=== PATIENT | female | born 1970 | race Hispanic/Latino ===

== ENCOUNTER → 2017-12-19 | Outpatient (CLI) | payer OTHER ==
--- NOTE | 2017-12-19 11:14 | Diagnostic Imaging Report ---
EXAMINATION: CHEST 2 VIEWS INDICATION: Cough COMPARISON: None FINDINGS: TUBES and LINES: None. LUNGS: Lungs are well inflated. Lungs are clear. There is no evidence of pneumonia or pulmonary edema. PLEURA: No pleural effusion or pneumothorax. HEART AND MEDIASTINUM: The cardiomediastinal silhouette is unremarkable. BONES AND SOFT TISSUES: No acute osseous lesion. Soft tissues are unremarkable. UPPER ABDOMEN: No free air under the diaphragm. Upper abdominal clips on lateral view. IMPRESSION: No acute thoracic abnormality. Signed by: Dr. Panfilo June MD on 12/19/2017 11:11 AM
--- NOTE | 2017-12-19 11:23 | Diagnostic Imaging Report ---
EXAM: lumbar spine, 4 views, AP and supine lateral, and bilateral oblique INDICATION: Pain COMPARISON: None FINDINGS: BONES: Mild dextroconvex curvature of the lumbar spine. No acute displaced fractures. DISCS: Degenerative disc changes, most pronounced at L5-S1. JOINTS: Mild facet degenerative changes most pronounced at L4-L and L5S1. SOFT TISSUES: Status post cholecystectomy. IMPRESSION: No evidence of fracture. Mild degenerative disc and facet degenerative changes in the lumbar spine. Signed by: Dr. Panfilo June MD on 12/19/2017 11:20 AM
== END ==
LOC: RAD 10:17
PROVIDERS: ATTEND Internal Medicine
DX: R05 Cough (principal); M51.86 Other intervertebral disc disorders, lumbar region
CPT/HCPCS: 71046; 72110

== ENCOUNTER → 2019-09-27 | Outpatient (CLI) | payer OTHER ==
[~2019-09-27] MED LIST: IOPAMIDOL 370 MG/ML 200 ML INFUS..BTL INJ ONE; SODIUM CHLORIDE 0.9% 50ML 50 ML ONE
[2019-09-27 10:11] LABS: BLOOD UREA NITROGEN 14 mg/dL (7-26); BUN/CREATININE RATIO 18 (6-25); CREATININE, SERUM 0.78 mg/dL (0.57-1.11); EST GLOMERULAR FILTRATION RATE > 60 ML/MIN (60-)
--- NOTE | 2019-09-27 11:36 | Diagnostic Imaging Report ---
CT of the abdomen and pelvis, with contrast. History: Ventral hernia. Comparison: None available. Technique: Multidetector CT scanning of the abdomen and pelvis was performed from the level of the lung bases to the inferior pubic rami after intravenous administration of contrast. Coronal and sagittal multiplanar reformations were obtained. RADIATION DOSE: Total DLP: 488.89 mGy*cm Dose modulation, iterative reconstruction, and/or weight based adjustment of the mA/kV was utilized to reduce the radiation dose to as low as reasonably achievable. FINDINGS: The visualized lungs are clear. The imaged portion of the heart demonstrates no significant abnormalities. The liver is enlarged measuring 23.5 cm in length and demonstrates diffusely decreased attenuation compatible with fatty infiltration. No focal hepatic abnormality is identified. The gallbladder is surgically absent. There is no biliary ductal dilatation. The stomach, spleen, pancreas, and bilateral adrenal glands are unremarkable. The kidneys are normal in size and location and enhance symmetrically. Minimal cortical scarring noted along the right kidney. There is no evidence for hydronephrosis. No ureteral stone or dilatation is appreciated. The partially distended urinary bladder demonstrates no significant abnormalities. Phleboliths are noted within the pelvis. The uterus and adnexa are grossly unremarkable. The abdominal aorta is normal course and caliber. The IVC is unremarkable. Please note evaluation the bowel is limited without the use of enteric contrast material. The visualized loops of small and large bowel demonstrate no evidence of obstruction or inflammation. There is no ascites or intraperitoneal free air. No abnormally enlarged lymph nodes are identified within the abdomen or pelvis. There is a tiny fat-containing umbilical hernia present. No significant ventral hernia is present. A small bone island is noted within the left acetabulum. The osseous structures otherwise demonstrate no evidence for acute fracture or destructive process. The extraperitoneal soft tissues are unremarkable. IMPRESSION: 1. In this patient with reported history of ventral hernia, a tiny fat-containing umbilical hernia is noted. No other ventral hernia is present. 2. Hepatomegaly and CT findings compatible with hepatic steatosis. 3. Status post cholecystectomy. Signed by: Dr. Dmitriy Samuels MD on 09/27/2019 11:32 AM
== END ==
LOC: CT 09:24
PROVIDERS: ATTEND Surgery
DX: K43.9 Ventral hernia without obstruction or gangrene (principal)
CPT/HCPCS: 36415; 74177; 82565; 84520; Q9967

== ENCOUNTER 2019-11-19 09:07 | Observation (INO) | payer OTHER ==
[2019-11-15 12:58] LABS: BASOPHILS % 0.6 % (0.0-1.0); EOSINOPHILS # (AUTO) 0.1 (0.0-0.4); HEMATOCRIT 35.5 % (34.2-44.1); HEMOGLOBIN 11.3 g/dL (12.0-16.0); LYMPHOCYTES # (AUTO) 2.4 (1.0-3.2); LYMPHOCYTES % 37.7 % (18.0-39.1); MEAN CORPUSCULAR HEMOGLOBIN 27.1 pg (28-32); MEAN CORPUSCULAR HGB CONC 31.8 g/dL (31-35); MEAN CORPUSCULAR VOLUME 85.1 fL (81-99); MONOCYTES # (AUTO) 0.5 (0.2-0.8); MONOCYTES % 8.1 % (4.4-11.3); NEUTROPHILS # (AUTO) 3.3 (2.1-6.9); NEUTROPHILS % 51.1 % (38.7-80.0); PLATELET COUNT 331 x10e3/uL (140-360); RED BLOOD COUNT 4.17 x10e6/uL (3.6-5.1); RED CELL DISTRIBUTION WIDTH 13.8 % (11.7-14.4)
[2019-11-15 13:44] LABS: ANION GAP 11.9 mmol/L (8-16); BLOOD UREA NITROGEN 21 mg/dL (7-26); BUN/CREATININE RATIO 25 (6-25); CALCIUM 9.4 mg/dL (8.4-10.2); CARBON DIOXIDE 27 mmol/L (22-29); CHLORIDE 103 mmol/L (98-107); CREATININE, SERUM 0.85 mg/dL (0.57-1.11); EST GLOMERULAR FILTRATION RATE > 60 ML/MIN (60-); GLUCOSE 382 mg/dL (74-118); POTASSIUM 4.9 mmol/L (3.5-5.1); SODIUM 137 mmol/L (136-145)
[~2019-11-19 09:07] MED LIST changes: +FENOFIBRATE145 MG PO; +GLIMEPIRIDE2 MG PO; -IOPAMIDOL 370 MG/ML 200 ML INFUS..BTL INJ ONE; +LOSARTAN POTAS100 MG PO; +LOVASTATIN40 MG PO; +METFORMIN HCL500 MG PO; +PIOGLITAZONE HC45 MG PO; -SODIUM CHLORIDE 0.9% 50ML 50 ML ONE
[2019-11-19] MEDS ORDERED: BUPIVACAINE 0.25%/EPI 30ML SDV INJ ONE (13:41)
[2019-11-19] MEDS ORDERED: HYDROMORPHONE 1MG/1ML INJ ONE ×2 (15:01→15:27)
[2019-11-19] MEDS ORDERED: FENTANYL CITRATE/PF 100MCG/2 ML INJ ONE (16:00)
[2019-11-19] MEDS ORDERED: HYDROCODONE/APAP 7.5MG-325MG 1 EA TAB PO PRN (16:45)
[2019-11-19] MEDS ORDERED: ONDANSETRON HCL INJ 2MG/ML 2ML 2 MG/ML VIAL IV PRN (16:45)
--- NOTE | 2019-11-19 17:15 | NUR ---
PT ARRIVED FROM PACU. PT IS AAOX4. EDUCATED PT ABOUT FALL PRECAUTIONS. PT VERBALIZED UNDERSTANDING. BED IS LOW AND LOCKED. SIDE RAILS X2. CALL LIGHT WITH IN EASY REACH. BED ALARM IS ON. PT DENIES NEEDS AT THIS TIME. PT INFORMATION IS NOT AVAILABLE IN THE SYSTEM AND SYSTEM SHOWING PT DISCHARGED ALREADY. INFORMED THE SAME TO TOP STITCHER AND FLOAT OPERATOR. WAITING FOR PT INFORMATION AVAILABLE IN THE SYSTEM TO PROCESS ORDERS.
[2019-11-19] MEDS: INSULIN REGULAR, HUMAN 100 UNIT/1 ML 3ML VIAL SQ SCH (18:00)
[2019-11-19 18:28] VITALS: BP 105/60
[2019-11-19] MEDS: SODIUM CHLORIDE 0.9% 1000ML 1,000 ML IV SCH (18:39)
--- NOTE | 2019-11-19 18:45 | Operative Report ---
DATE OF PROCEDURE: 11/19/2019 SURGEON: Miguel Knox MD PREOPERATIVE DIAGNOSIS: Ventral hernia. POSTOPERATIVE DIAGNOSIS: Ventral hernia. OPERATION PERFORMED: Repair of ventral hernia. PRODUCTION TECH: SHIVANI Art ANESTHESIA: General. COMPLICATIONS: None. ESTIMATED BLOOD LOSS: Minimal. DESCRIPTION OF PROCEDURE: With the patient lying in bed in the supine position under good general anesthesia, the abdomen was prepped with Betadine solution and draped in the usual manner. A midline incision was made in the lower abdomen and curved just to the right of the umbilicus. Incision was deepened through the subcutaneous tissue down to the fascia. Two defects were found. One was at the top of the old midline incision at the umbilicus and there was a 2nd defect above the umbilicus. The umbilicus was detached and and the fascia was then dissected all the way around to make sure that there were no other defects identified. After this was done, examination revealed that there was good tissue all the way around and we decided to go ahead and do a primary repair since the defects were not very large. The fascia was then plicated at the midline using interrupted sutures of 0 Ethibond, incorporating all of the defects into the closure, giving us a satisfactory closure without any tension. The whole area was then thoroughly irrigated. Perfect hemostasis was ascertained. All layers were infiltrated on the way out with solution of 0.25% Marcaine. The umbilicus then tacked back down to the midline fascia with 3-0 Vicryl. The subcutaneous tissue was approximated with 3-0 Vicryl and the skin was closed with clips. A dressing was applied. The sponge, lap, and needle count was correct. The patient tolerated the procedure well and returned to the recovery room in stable condition. Miguel Knox MD JLR/MODL /[id number]
[2019-11-19 18:47] VITALS: BP 105/60
--- NOTE | 2019-11-19 19:00 | NUR ---
BEDSIDE SHIFT REPORT GIVEN TO THE TRAILER TECHNICIAN RN. PT DENIED FURTHER NEEDS.
[2019-11-19 20:00] VITALS: BP 110/48
[2019-11-19] MEDS: HYDROMORPHONE 1MG/1ML INJ IV PRN (21:09)
[2019-11-19 22:15] VITALS: BP 110/48
[2019-11-20] VITALS: BP 115/60
[2019-11-20] MEDS: HYDROMORPHONE 1MG/1ML INJ IV PRN ×2 (03:13→06:30)
[2019-11-20] MEDS: SODIUM CHLORIDE 0.9% 1000ML 1,000 ML IV SCH (03:17)
[2019-11-20 04:00] VITALS: BP 106/58
[2019-11-20] MEDS: INSULIN REGULAR, HUMAN 100 UNIT/1 ML 3ML VIAL SQ SCH ×2 (06:00)
[2019-11-20 08:42] VITALS: BP 105/56
[2019-11-20 09:31] VITALS: BP 105/56
[2019-11-20 11:59] VITALS: BP 115/57
--- NOTE | 2019-11-20 12:25 | NUR ---
Discharge education given to patient. Prescription given. Discharge packet given. PIV to right AC removed,catheter intact, no bleeding noted. Patient is transported via wheelchair to private vehicle with all personal belongings taken.
== END 2019-11-20 12:25 | disposition home or self-care (01) ==
LOC: OR 09:07 → MED/SURG 16:43
PROVIDERS: ADMIT Surgery; ATTEND Surgery
DX: K42.9 Umbilical hernia without obstruction or gangrene (principal); Z01.810 Encounter for preprocedural cardiovascular examination; Z01.812 Encounter for preprocedural laboratory examination; E11.9 Type 2 diabetes mellitus without complications; I10 Essential (primary) hypertension; Z11.59 Encounter for screening for other viral diseases
CPT/HCPCS: 36415 ×3; 49560; 80048; 81025; 82948 ×2; 85025; 93005; G0378 ×2; J1170 ×2; J3010; J7030 ×2; U0002

== ENCOUNTER → 2022-10-05 | Day surgery (SDC) | payer OTHER ==
[~2022-10-05] MED LIST changes: +GLYCOPYRROLATE INJ 0.2 MG/ML VIAL ONE; +LACTATED RINGER'S 1,000 ML ONE; +LIDOCAINE HCL 2% LOCAL INJ 5 ML SDV VIAL INJ ONE; +MIDAZOLAM HCL 2 MG/2 ML VIAL ONE; +POVIDONE IODINE 0.05% 0.05 % ML PO ONE; +PROPOFOL IV EMULSION 10 MG/ML 20 ML VIAL ONE
[2022-10-05 08:07] VITALS: TEMP 97.6
[2022-10-05 08:20] VITALS: BP 130/78; PULSE 79; RESP 17; O2SAT 97
== END | disposition home or self-care (01) ==
LOC: OR 06:28
PROVIDERS: ATTEND Internal Medicine Gastroenterology
DX: K29.70 Gastritis, unspecified, without bleeding (principal); K44.9 Diaphragmatic hernia without obstruction or gangrene; K21.9 Gastro-esophageal reflux disease without esophagitis; K62.89 Other specified diseases of anus and rectum; D72.820 Lymphocytosis (symptomatic); A04.9 Bacterial intestinal infection, unspecified; K64.8 Other hemorrhoids; R74.01 Elevation of levels of liver transaminase levels; R79.82 Elevated C-reactive protein (CRP); R81 Glycosuria; E11.9 Type 2 diabetes mellitus without complications; I10 Essential (primary) hypertension; E78.5 Hyperlipidemia, unspecified; F32.A Depression, unspecified; Z01.810 Encounter for preprocedural cardiovascular examination; Z79.84 Long term (current) use of oral hypoglycemic drugs; Z79.899 Other long term (current) drug therapy; Z68.35 Body mass index [BMI] 35.0-35.9, adult
CPT/HCPCS: 36415; 43239; 45330; 82948; 93005; J2001; J2250; J2704; J7121

== ENCOUNTER → 2024-04-02 | Day surgery (SDC) | payer OTHER ==
[~2024-04-02] MED LIST changes: +AMITIZA24 MCG PO; +DICYCLOMINE HCL10 MG PO; -GLYCOPYRROLATE INJ 0.2 MG/ML VIAL ONE; +OZEMPIC2 MG/0.75 SC; -POVIDONE IODINE 0.05% 0.05 % ML PO ONE; +SERTRALINE HCL50 MG PO; +TRAZODONE HCL100 MG PO
[2024-04-02 16:40] VITALS: TEMP 97.1
[2024-04-02 17:10] VITALS: BP 125/82; PULSE 88; RESP 15; O2SAT 98
== END | disposition home or self-care (01) ==
LOC: OR 12:47 → EDBD 13:30
PROVIDERS: ATTEND Internal Medicine Gastroenterology
DX: Z12.11 Encounter for screening for malignant neoplasm of colon (principal); D12.2 Benign neoplasm of ascending colon; D12.3 Benign neoplasm of transverse colon; R19.8 Other specified symptoms and signs involving the digestive system and abdomen; K21.9 Gastro-esophageal reflux disease without esophagitis; R74.01 Elevation of levels of liver transaminase levels; I10 Essential (primary) hypertension; E78.5 Hyperlipidemia, unspecified; E11.9 Type 2 diabetes mellitus without complications; Z01.810 Encounter for preprocedural cardiovascular examination; Z79.84 Long term (current) use of oral hypoglycemic drugs; Z79.85 Long-term (current) use of injectable non-insulin antidiabetic drugs; Z79.899 Other long term (current) drug therapy
CPT/HCPCS: 45380; 45384; 45385; 93005; J2003; J2250; J2704; J7121